=== PATIENT | female | born 1950 | race Caucasian/White ===

== ENCOUNTER 2019-03-05 19:47 | Inpatient (IN) | payer MEDICARE, SELFPAY | END 2019-03-08 14:30 | disposition home or self-care (01) | DRG 194 | PROVIDERS: Admitting Provider Internal Medicine; Emergency Provider Emergency Medicine; PCP Internal Medicine; Visit Provider Internal Medicine | DX: J18.1 Lobar pneumonia, unspecified organism (principal); E87.1 Hypo-osmolality and hyponatremia; J20.9 Acute bronchitis, unspecified; E87.6 Hypokalemia; E83.42 Hypomagnesemia; R00.0 Tachycardia, unspecified; R73.9 Hyperglycemia, unspecified; I10 Essential (primary) hypertension | CPT/HCPCS: 36415; 71046; 71275; 80048; 82570; 83036; 83605; 83735; 83880; 84300; 85025; 85027; 87040; 87278; 87449; 87581; 87899; 93005; 93306; 94640; 94667; 96365; 96367; 96375; 96376; 99285; A9270; G0378; J0456; J0696; J1650; J2930; J3475; J7030; J7512; Q9967 ==